=== PATIENT | male | born 1945 | race Two or more races ===

== ENCOUNTER 2021-04-24 08:17 | Inpatient (IN) | payer OTHER ==
[~2021-04-24] VITALS: Ht 160 cm; Wt 53.1 kg
[2021-04-24] MEDS ORDERED: LATANOPROST1 GM (09:15)
[2021-04-24] MEDS ORDERED: BETIMOL5 M1 (09:16)
== END 2021-05-08 21:48 | disposition home or self-care (01) | DRG 330 ==
LOC: SURH 04-27 08:16 → SURG 05-01 10:03 → O/R 05-01 10:03 → SURH 05-01 19:25 → SURG 05-02 09:27
PROVIDERS: ADMIT Colon & Rectal Surgery; ATTEND Colon & Rectal Surgery
PROC: 07BD4ZX Excision of Aortic Lymphatic, Percutaneous Endoscopic Approach, Diagnostic (ICD-10-PCS; 2021-05-01)
PROC: 3E0F7SF Introduction of Other Gas into Respiratory Tract, Via Natural or Artificial Opening (ICD-10-PCS; 2021-05-01)
PROC: 0DTF4ZZ Resection of Right Large Intestine, Percutaneous Endoscopic Approach (ICD-10-PCS; principal; 2021-05-01 11:15)
DX: C18.2 Malignant neoplasm of ascending colon (principal); J98.11 Atelectasis; E87.5 Hyperkalemia